=== PATIENT | male | born 1940 | race African-American/Black ===

== ENCOUNTER 2020-03-23 12:25 | Emergency (ER) | payer MEDICAID, OTHER ==
[~2020-03-23] VITALS: Ht 185.4 cm; Wt 104.5 kg
[~2020-03-23 12:25] MED LIST: QUET200T PO
[2020-03-23 12:29] VITALS: BP 122/69
[2020-03-23] MEDS ORDERED: KETOROLAC TROMETHAMINE 30 MG/ML VIAL IVP ONE (14:00)
[2020-03-23] MEDS ORDERED: KETOROLAC TROMETHAMINE 60 MG/2 ML VIAL IM ONE (14:00)
== END 2020-03-23 14:30 | disposition left against medical advice (07) ==
LOC: EMS 12:25
DX: D17.9 Benign lipomatous neoplasm, unspecified (principal)
CPT/HCPCS: 99281; Z7502